=== PATIENT | male | born 1985 | race Caucasian/White ===

== ENCOUNTER → 2017-08-22 | Outpatient (CLI) | payer OTHER | LOC: STAR 14:22 | PROVIDERS: ATTEND Surgery | DX: Z02.9 Encounter for administrative examinations, unspecified (principal) ==

== ENCOUNTER 2017-09-06 14:08 | Day surgery (SDC) | payer OTHER ==
[~2017-09-06] VITALS: Ht 180.3 cm; Wt 95.5 kg
[2017-09-06] MEDS ORDERED: LACTATED RINGERS 1,000 ML IV SCH (14:29)
[2017-09-06] MEDS ORDERED: BUPIVACAINE/PF 0.5% ONE (15:13)
[2017-09-06] MEDS ORDERED: EPINEPHRINE 1 MG/ML, 1ML ONE ×2 (15:14→15:25)
[2017-09-06] MEDS ORDERED: FENTANYL PF 250 MCG/5ML ONE (15:20)
[2017-09-06] MEDS ORDERED: PROPOFOL 10 MG/ML, 20ML ONE (15:20)
[2017-09-06] MEDS ORDERED: MIDAZOLAM 1 MG/ML, 2ML ONE (15:20)
[2017-09-06] MEDS ORDERED: LIDOCAINE-MPF 2% ,5ML ONE (15:20)
[2017-09-06] MEDS ORDERED: ROCURONIUM 10MG/ML,5ML ONE (15:22)
[2017-09-06] MEDS ORDERED: DEXAMETHASONE 4 MG/ML, 1ML ONE ×2 (15:25)
[2017-09-06] MEDS ORDERED: GABAPENTIN 300 MG CAPSULE ONE (15:41)
[2017-09-06] MEDS ORDERED: ONDANSETRON ODT 8 MG ONE (15:42)
[2017-09-06] MEDS ORDERED: OxyconTIN ER 20 MG TAB.ER ONE (15:43)
[2017-09-06] MEDS ORDERED: ACETAMINOPHEN 500 MG TABLET ONE (15:44)
[2017-09-06] MEDS ORDERED: CEFAZOLIN 1,000 MG ONE (15:53)
[2017-09-06] MEDS ORDERED: GABAPENTIN 300 MG CAPSULE PO ONE (16:00)
[2017-09-06] MEDS ORDERED: OxyconTIN ER 20 MG TAB.ER PO ONE (16:00)
[2017-09-06] MEDS ORDERED: ACETAMINOPHEN 500 MG TABLET PO ONE (16:00)
[2017-09-06] MEDS ORDERED: ONDANSETRON ODT 8 MG PO ONE (16:00)
[2017-09-06] MEDS ORDERED: MORPHINE SULFATE 4 MG/ML, 1ML ONE (16:59)
[2017-09-06] MEDS ORDERED: FENTANYL PF 100 MCG/2ML ONE (16:59)
[2017-09-06] MEDS ORDERED: KETOROLAC 30 MG/1 ML ONE (16:59)
[2017-09-06] MEDS ORDERED: LABETALOL 5MG/ML, 20ML IV PRN (17:00)
[2017-09-06] MEDS ORDERED: KETOROLAC 30 MG/1 ML IV PRN (17:00)
[2017-09-06] MEDS ORDERED: hydrALAzine 20 MG/ML, 1ML IV PRN (17:00)
[2017-09-06] MEDS ORDERED: PROMETHAZINE 25 MG/ML, 1ML IV PRN (17:00)
[2017-09-06] MEDS ORDERED: morphine SULFATE 10 MG/ML, 1ML IV PRN (17:00)
[2017-09-06] MEDS ORDERED: OXYcodone 5 MG/5 ML ORAL.SOL UDC PO PRN (17:00)
[2017-09-06] MEDS ORDERED: MEPERIDINE/PF 25MG/0.5ML IVPush PRN (17:00)
[2017-09-06] MEDS: FENTANYL PF 100 MCG/2ML IV PRN ×2 (17:10→17:20)
== END 2017-09-06 18:40 | disposition home or self-care (01) ==
LOC: OR 14:08
PROVIDERS: ATTEND Surgery
DX: K40.90 Unilateral inguinal hernia, without obstruction or gangrene, not specified as recurrent (principal); F17.210 Nicotine dependence, cigarettes, uncomplicated; Z72.89 Other problems related to lifestyle
CPT/HCPCS: 49650; C1781; J0171; J0690; J1100; J1885; J2250; J2270; J2704; J3010; J3490; J7120; Q0162